=== PATIENT | male | born 1960 | race Caucasian/White ===

== ENCOUNTER 2018-01-28 12:37 | Emergency (ER) | payer MEDICARE ==
[2018-01-28 13:08] VITALS: O2SAT 97
[2018-01-28] MEDS ORDERED: Hydromorphone 1 mg/ml Ampule IM ONE (13:21)
[2018-01-28] MEDS ORDERED: Phenergan 25 MG INJ IM ONE (13:23)
[2018-01-28] MEDS ORDERED: TORAdol 30 mg Injection IM ONE (13:24)
--- NOTE | 2018-01-28 13:26 | ERPHSYRPT ---
- History of Present Illness Time Seen by Provider: 01/28/18 13:10 Source: patient Exam Limitations: clinical condition Patient Subjective Stated Complaint: STATES HAS LOWER BACK PAIN FOR ONE WEEK. STATES IS NOW RADIATING DOWN R HIP AND R LEG. DENIES ANY INJURY Triage Nursing Assessment: TO ROOM PER WC. SKIN MOIST/WARM. PATIENT HOLDING RIGHT SIDE OF BACK. Physician History: PATIENT WITH A HISTORY OF CHRONIC LOW BACK PAIN, DEGENERATIVE DISC DISEASE COMPLAINS OF INCREASING LOW BACK PAIN, SHARP, PAIN SCALE 10/10, STATES PAIN RADIATES DOWN BACK OF RIGHT LEG. DENIES LOSS OF BOWEL OR BLADDER FUNCTION. Timing/Duration: week(s) Method of Injury: unknown Quality: sharp, throbbing Back Pain Location: lumbar spine Back Pain Radiation: upper legs Severity of Pain-Max: severe Severity of Pain-Current: severe Modifying Factors: Improves With: movement Associated Symptoms: muscle spasms Previous symptoms: same symptoms as today Allergies/Adverse Reactions: hydrocodone Adverse Reaction (Mild, Verified 01/28/18 12:57) Nausea and Vomiting Hx Tetanus, Diphtheria Vaccination/Date Given: No Hx Influenza Vaccination/Date Given: No Hx Pneumococcal Vaccination/Date Given: No - Review of Systems Constitutional: No Fever, No Chills Eyes: No Symptoms Ears, Nose, & Throat: No Symptoms Respiratory: No Symptoms, No Cough, No Dyspnea Cardiac: No Symptoms, No Chest Pain, No Edema, No Syncope Abdominal/Gastrointestinal: No Symptoms, No Abdominal Pain, No Nausea, No Vomiting, No Diarrhea Genitourinary Symptoms: No Dysuria Musculoskeletal: Back Pain, No Neck Pain Skin: No Rash Neurological: Other (SCIATICA DOWN RIGHT LEG), No Dizziness, No Focal Weakness, No Sensory Changes Psychological: No Symptoms Endocrine: No Symptoms All Other Systems: Reviewed and Negative - Past Medical History Pertinent Past Medical History: Yes Neurological History: Other Musculoskeletal History: Arthritis, Degenerative Disk Disease GI Medical History: GERD - Past Surgical History Past Surgical History: Yes Gastrointestinal: Cholecystectomy Musculoskeletal: Orthopedic Surgery Other Surgical History: BACK SURGERY A CHILD - Social History Smoking Status: Never smoker How long have you smoked: 5 Exposure to second hand smoke: No Drug Use: none Patient Lives Alone: No - Nursing Vital Signs Nursing Vital Signs: Initial Vital Signs Temperature 97.6 F 01/28/18 12:48 Pulse Rate 64 01/28/18 12:48 Respiratory Rate 16 01/28/18 12:48 Blood Pressure 152/80 01/28/18 12:48 O2 Sat by Pulse Oximetry 97 01/28/18 12:48 Pain Scale Pain Intensity 8 - Physical Exam General Appearance: moderate distress, alert Eye Exam: PERRL/EOMI, eyes nml inspection Neck Exam: normal inspection, non-tender, supple, full range of motion, No meningismus, No midline tenderness Respiratory Exam: normal breath sounds, lungs clear, No respiratory distress Cardiovascular Exam: regular rate/rhythm, normal heart sounds Gastrointestinal Exam: soft, No tenderness, No mass Back Exam: normal inspection, decreased range of motion, muscle spasm, point tenderness (L-1 TO L-5, MARKED TENDERNESS RIGHT SACRO ILIAC JOINT) Extremity Exam: normal inspection, normal range of motion, No calf tenderness, No pedal edema Peripheral Pulses: carotid (R): 2+, carotid (L): 2+, femoral (R): 2+, femoral (L ): 2+, dorsalis-pedis (R): 2+, dorsalis-pedis (L): 2+ Neurologic Exam: alert, oriented x 3, cooperative, 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, normal mood/affect, nml station & gait, sensation nml, No motor deficits Skin Exam: normal color, warm, dry, No rash SpO2 Interpretation: normal SpO2: 97 Oxygen Delivery: Room Air - CT Exams Lumbar Spine CT Interpretation: Discussed w/radiologist (BILATERAL L-5 SPONDYLOLYSIS AND GRADE 1-2 SPONKLYOLISTHEISI WITH SUBSEQUENT BILATERAL FORAMINAL STENOSIS, L-5 TO S-1 BROAD BASED DISC BULGE) Ordered Tests: Active Orders 24 hr Category Date Time Status LUMBAR SPINE W/O [CT] Stat Exams 01/28/18 13:22 Completed Medication Summary Discontinued Medications Generic Name Dose Route Start Last Admin Trade Name Joseq PRN Reason Stop Dose Admin Hydromorphone HCl 1 mg 01/28/18 13:21 01/28/18 13:50 Hydromorphone 1 Mg/Ml Ampule IM 01/28/18 13:22 1 mg STAT ONE Administration Hydromorphone HCl Confirm 01/28/18 13:38 Hydromorphone 1 Mg/Ml Ampule Administered 01/28/18 13:39 Dose 1 mg .ROUTE .STK-MED ONE Ketorolac Tromethamine 60 mg 01/28/18 13:24 01/28/18 13:50 Toradol 30 Mg Injection IM 01/28/18 13:25 60 mg STAT ONE Administration Ketorolac Tromethamine Confirm 01/28/18 13:38 Toradol 30 Mg Injection Administered 01/28/18 13:39 Dose 60 mg .ROUTE .STK-MED ONE Promethazine HCl 25 mg 01/28/18 13:23 01/28/18 13:50 Phenergan 25 Mg Inj IM 01/28/18 13:24 25 mg STAT ONE Administration Promethazine HCl Confirm 01/28/18 13:38 Phenergan 25 Mg Inj Administered 01/28/18 13:39 Dose 25 mg .ROUTE .STK-MED ONE - Progress Progress: improved, pain not gone completely Progress Note: 01/28/18 13:54 ADMINISTERED DILAUDID 1MG/PHENERGAN 25MG IM, TORADOL 60MG IM Counseled pt/family regarding: diagnosis, need for follow-up, rad results - Departure Time of Disposition: 14:45 Departure Disposition: Transfer Clinical Impression: LUMBAR DEGENERATIVE DISC DISEASE Condition: Stable Critical Care Time: No Referrals: DOCTOR,NO FAMILY [Primary Care Provider] - Additional Instructions: FOLLOWUP WITH A PRIMARY CARE PROVIDER FOR EVALUATION, TREATMENT, PHYSICAL THERAPY. TORADOL 10MG EVERY 6 HOURS FOR MILD TO MODERATE PAIN, TYLENOL #3 EVERY 6 HOURS FOR SEVERE PAIN. NORFLEX 100MG TWICE DAILY FOR MUSCLE SPASMS. Prescriptions: Codeine Phosphate/APAP #3 [Tylenol #3 Tablet] 1 tab PO Q6H PRN PRN #14 tablet PRN Reason: Pain Ketorolac Tromethamine [Toradol] 10 mg PO Q6HPRN PRN #20 tablet PRN Reason: Pain Orphenadrine Citrate 100 mg [Norflex 100 MG Tablet] 100 mg PO BID #20 tab
[2018-01-28] MEDS ORDERED: Hydromorphone 1 mg/ml Ampule ONE (13:38)
[2018-01-28] MEDS ORDERED: Phenergan 25 MG INJ ONE (13:38)
[2018-01-28] MEDS ORDERED: TORAdol 30 mg Injection ONE (13:38)
--- NOTE | 2018-01-28 14:08 | XRAY ---
Indication: Low back pain radiating down right leg. Multiple contiguous axial images obtained through the lumbar spine. Sagittal and coronal reformatted images obtained. Comparison: None Axial images demonstrates mild broad-based disc bulge at the L2-S1 levels, L5-S1 degenerative vacuum disc phenomena, and bilateral L5 spondylolysis. Sagittal and coronal reformatted images demonstrates normal lumbar lordosis. There is 5 mm L5 spondylolisthesis on S1 with subsequent bilateral foraminal stenosis. No compression fracture. Visualized noncontrasted soft tissues demonstrates mild aortoiliac calcifications. Impression: 1. 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 2. L2-S1 broad-based disc bulge. CT DI 75.52
[2018-01-28 14:48] VITALS: BP 142/79; PULSE 60
== END 2018-01-28 15:04 | disposition home or self-care (01) ==
LOC: ED 12:37
DX: M51.16 Intervertebral disc disorders with radiculopathy, lumbar region (principal); M54.5 Low back pain; M62.830 Muscle spasm of back
CPT/HCPCS: 72131; 96372; 99284; J1170; J1885; J2550

== ENCOUNTER 2018-10-14 11:43 | Emergency (ER) | payer MEDICARE ==
[2018-10-14] MEDS ORDERED: TORAdol 30 mg Injection IV ONE (12:14)
[2018-10-14] MEDS ORDERED: Sodium Chloride 0.9% 1000 ML 1,000 ML IV STA (12:14)
--- NOTE | 2018-10-14 12:18 | ERPHSYRPT ---
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 pt reports the pain caused him to feel as if he could pass out. pt also reports pins and needles sensation to the legs. reports he has some herniated discs in his back. states he was seen at this facility recently for this issue and was referred to a specialist who did a procedure to his back, he cannot recall the name of the facility or what procedure. pt reports lifting his grandson into a high chair prior to the pain starting. Triage Nursing Assessment: pt is aox3, pupils perrl, afebrile, resps easy and non labored, radial pulses strong and equal, cap refill < 3 seconds, pt skin pink warm dry. no injury or deformity noted to the back, skin is intact. pt ROM intact, pt stood and transfered to cot with no difficulties. Physician History: 58-year-old white male with history of chronic low back pain, degenerative disease, arthritis, GERD. Arrives with complaint of pain which is described as sharp intermittent severe located in his left flank and low back on the left symptoms going on for an hour. Patient does give a history of lifting a child prior to pain however he is having pain whether or not he moves he has tingling of both upper extremities. Is not having any problem moving Past medical history includes chronic low back pain degenerative disease arthritis, GERD. Past surgical history includes cholecystectomy orthopedic surgery back surgery as a child. Timing/Duration: today Severity: moderate Modifying Factors: Improves With: nothing Associated Symptoms: other (patient states the pain was so bad he passed out), No nausea, No vomiting, No abdominal pain, No shortness of breath, No heartburn , No diaphoresis, No cough, No chills, No chest pain, No fever, No headaches, No loss of appetite, No malaise, No rash, No syncope, No seizure, No weakness Allergies/Adverse Reactions: hydrocodone Adverse Reaction (Mild, Verified 01/28/18 12:57) Nausea and Vomiting Hx Tetanus, Diphtheria Vaccination/Date Given: (unk) Hx Influenza Vaccination/Date Given: No Hx Pneumococcal Vaccination/Date Given: No Immunizations Up to Date: Yes - Review of Systems Constitutional: No Fever, No Chills Eyes: No Symptoms Ears, Nose, & Throat: No Symptoms Respiratory: No Cough, No Dyspnea Cardiac: Syncope, No Chest Pain, No Edema, No Palpitations, No Orthopnea, No PND Abdominal/Gastrointestinal: No Abdominal Pain, No Nausea, No Vomiting, No Diarrhea Genitourinary Symptoms: No Dysuria Musculoskeletal: No Back Pain, No Neck Pain Skin: No Rash Neurological: No Dizziness, No Focal Weakness, No Sensory Changes Psychological: No Symptoms Endocrine: No Symptoms All Other Systems: Reviewed and Negative - Past Medical History Pertinent Past Medical History: Yes Neurological History: Other Musculoskeletal History: Arthritis, Degenerative Disk Disease GI Medical History: GERD Other Medical History: chronic back pain - Past Surgical History Past Surgical History: Yes Gastrointestinal: Cholecystectomy Musculoskeletal: Orthopedic Surgery Other Surgical History: BACK SURGERY A CHILD - Social History Smoking Status: Never smoker How long have you smoked: 5 Exposure to second hand smoke: No Drug Use: none Patient Lives Alone: No - Nursing Vital Signs Nursing Vital Signs: Initial Vital Signs Temperature 97.8 F 10/14/18 11:44 Pulse Rate 63 10/14/18 11:44 Respiratory Rate 18 10/14/18 11:44 Blood Pressure 165/84 10/14/18 11:44 O2 Sat by Pulse Oximetry 98 10/14/18 11:44 Pain Scale Pain Intensity [] 2 Pain Intensity 5 - Physical Exam General Appearance: moderate distress, alert Eye Exam: PERRL/EOMI, eyes nml inspection Ears, Nose, Throat Exam: normal ENT inspection, TMs normal, pharynx normal, moist mucous membranes Neck Exam: normal inspection, non-tender, supple, full range of motion Respiratory Exam: normal breath sounds, lungs clear, No respiratory distress Cardiovascular Exam: regular rate/rhythm, normal heart sounds, normal peripheral pulses, capillary refill <2 sec Gastrointestinal/Abdomen Exam: soft, normal bowel sounds, No tenderness, No mass Back Exam: CVA tenderness (left flank pain) Extremity Exam: normal inspection, normal range of motion, pelvis stable Neurologic Exam: alert, oriented x 3, cooperative, 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 Scattered colonic diverticulosis without diverticulitis. 2. Nonobstructing bilateral renal microbe-calculi. 3. Incidental L5 spondylolysis with grade 1-[address] abdomen/ pelvis without contrast exam negative) Ordered Tests: Active Orders 24 hr Category Date Time Status EKG-ER Only STAT Care 10/14/18 12:18 Active IV Insertion STAT Care 10/14/18 12:14 Active ABDOMEN AND PELVIS W/0 CONTRAS [CT] Stat Exams 10/14/18 12:14 Completed CBC W DIFF Stat Lab 10/14/18 12:32 Completed CMP Stat Lab 10/14/18 12:32 Completed UA W/RFX UR CULTURE Stat Lab 10/14/18 13:40 Completed Urine Triage Profile Stat Lab 10/14/18 13:30 Completed Medication Summary Discontinued Medications Generic Name Dose Route Start Last Admin Trade Name Freq PRN Reason Stop Dose Admin Sodium Chloride 1,000 mls @ 999 mls/hr 10/14/18 12:14 10/14/18 14:27 Sodium Chloride 0.9% 1000 Ml IV 10/14/18 13:14 Infused .Q1H1M STA Infusion Sodium Chloride Confirm 10/14/18 13:04 Sodium Chloride 0.9% 1000 Ml Administered 10/14/18 13:05 Dose 1,000 mls @ ud .ROUTE .STK-MED ONE Ketorolac Tromethamine 30 mg 10/14/18 12:14 10/14/18 13:08 Toradol 30 Mg Injection IV 10/14/18 12:15 30 mg STAT ONE Administration Ketorolac Tromethamine Confirm 10/14/18 13:04 Toradol 30 Mg Injection Administered 10/14/18 13:05 Dose 30 mg .ROUTE .STK-MED ONE Lab/Rad Data: Laboratory Result Diagrams 10/14/18 12:32 10/14/18 12:32 Laboratory Results 10/14/18 10/14/18 10/14/18 Range/Units 13:40 13:30 12:32 WBC (4.0-10.5) K/mm3 RBC (4.1-5.6) M/mm3 Hgb (12.5-18.0) gm/dl Hct (42-50) % MCV (78-100) fl MCH (26-32) pg MCHC (32-36) g/dl RDW (11.5-14.0) % Plt Count (150-450) K/mm3 MPV (6-9.5) fl Gran % (36.0-66.0) % Eos # (Auto) (0-0.5) Absolute Lymphs (auto) (1.0-4.6) Absolute Monos (auto) (0.0-1.3) Lymphocytes % (24.0-44.0) % Monocytes % (0.0-12.0) % Eosinophils % (0.00-5.0) % Basophils % (0.0-0.4) % Absolute Granulocytes (1.4-6.9) Basophils # (0-0.4) Sodium 139 (137-145) mmol/L Potassium 4.1 (3.5-5.1) mmol/L Chloride 104 (98-107) mmol/L Carbon Dioxide 25 (22-30) mmol/L Anion Gap 14.5 (5-15) MEQ/L BUN 14 (9-20) mg/dL Creatinine 0.91 (0.66-1.25) mg/dL Estimated GFR > 60.0 ML/MIN Glucose 103 (74-106) mg/dL Calcium 9.8 (8.4-10.2) mg/dL Total Bilirubin 0.40 (0.2-1.3) mg/dL AST 24 (17-59) U/L ALT 18 (0-50) U/L Alkaline Phosphatase 77 (38-126) U/L Serum Total Protein 7.3 (6.3-8.2) g/dL Albumin 4.0 (3.5-5.0) g/dL Urine Color YELLOW (YELLOW) Urine Appearance CLEAR (CLEAR) Urine pH 6.0 (5-6) Ur Specific [place] 1.012 (1.005-1.025) Urine Protein NEGATIVE (Negative) Urine Ketones NEGATIVE (NEGATIVE) Urine Blood NEGATIVE (0-5) Dante/ul Urine Nitrite NEGATIVE (NEGATIVE) Urine Bilirubin NEGATIVE (NEGATIVE) Urine Urobilinogen NEGATIVE (0-1) mg/dL Ur Leukocyte Esterase NEGATIVE (NEGATIVE) Urine WBC (Auto) NONE (0-5) /HPF Urine RBC (Auto) NONE (0-2) /HPF U Epithel Cells (Auto) NONE (FEW) /HPF Urine Bacteria (Auto) NONE (NEGATIVE) /HPF Urine Mucus (Auto) SLIGHT (NEGATIVE) /HPF Urine Culture Reflexed NO (NO) Urine Glucose NEGATIVE (NEGATIVE) mg/dL Urine Opiates Level NEGATIVE (NEGATIVE) Ur Methadone NEGATIVE (NEGATIVE) Urine Barbiturates NEGATIVE (NEGATIVE) Ur Phencyclidine (PCP) NEGATIVE (NEGATIVE) Urine Amphetamine NEGATIVE (NEGATIVE) U Benzodiazepine Level NEGATIVE (NEGATIVE) Urine Cocaine NEGATIVE (NEGATIVE) Urine Marijuana (THC) NEGATIVE (NEGATIVE) 10/14/18 Range/Units 12:32 WBC 9.3 (4.0-10.5) K/mm3 RBC 5.11 (4.1-5.6) M/mm3 Hgb 15.4 (12.5-18.0) gm/dl Hct 45.3 (42-50) % MCV 88.6 (78-100) fl MCH 30.1 (26-32) pg MCHC 34.0 (32-36) g/dl RDW 14.1 H (11.5-14.0) % Plt Count 236 (150-450) K/mm3 MPV 10.4 H (6-9.5) fl Gran % 64.3 (36.0-66.0) % Eos # (Auto) 0.21 (0-0.5) Absolute Lymphs (auto) 2.15 (1.0-4.6) Absolute Monos (auto) 0.93 (0.0-1.3) Lymphocytes % 23.1 L (24.0-44.0) % Monocytes % 10.0 (0.0-12.0) % Eosinophils % 2.3 (0.00-5.0) % Basophils % 0.3 (0.0-0.4) % Absolute Granulocytes 5.97 (1.4-6.9) Basophils # 0.03 (0-0.4) Sodium (137-145) mmol/L Potassium (3.5-5.1) mmol/L Chloride (98-107) mmol/L Carbon Dioxide (22-30) mmol/L Anion Gap (5-15) MEQ/L BUN (9-20) mg/dL Creatinine (0.66-1.25) mg/dL Estimated GFR ML/MIN Glucose (74-106) mg/dL Calcium (8.4-10.2) mg/dL Total Bilirubin (0.2-1.3) mg/dL AST (17-59) U/L ALT (0-50) U/L Alkaline Phosphatase (38-126) U/L Serum Total Protein (6.3-8.2) g/dL Albumin (3.5-5.0) g/dL Urine Color (YELLOW) Urine Appearance (CLEAR) Urine pH (5-6) Ur Specific [place] (1.005-1.025) Urine Protein (Negative) Urine Ketones (NEGATIVE) Urine Blood (0-5) Dante/ul Urine Nitrite (NEGATIVE) Urine Bilirubin (NEGATIVE) Urine Urobilinogen (0-1) mg/dL Ur Leukocyte Esterase (NEGATIVE) Urine WBC (Auto) (0-5) /HPF Urine RBC (Auto) (0-2) /HPF U Epithel Cells (Auto) (FEW) /HPF Urine Bacteria (Auto) (NEGATIVE) /HPF Urine Mucus (Auto) (NEGATIVE) /HPF Urine Culture Reflexed (NO) Urine Glucose (NEGATIVE) mg/dL Urine Opiates Level (NEGATIVE) Ur Methadone (NEGATIVE) Urine Barbiturates (NEGATIVE) Ur Phencyclidine (PCP) (NEGATIVE) Urine Amphetamine (NEGATIVE) U Benzodiazepine Level (NEGATIVE) Urine Cocaine (NEGATIVE) Urine Marijuana (THC) (NEGATIVE) - Progress Progress: unchanged Progress Note: 10/14/18 15:20 Patient improved after Toradol [address] of the patient's abdomen and pelvis impression 1 scattered colonic diverticulosis without diverticulitis to nonobstructing bilateral renal Microcal feel I 3 incidental L5 spondylolysis with a grade on the tubes spondylolisthesis 3. Remaining CT abdomen and pelvis without contrast was negative patient's urine drug screen was negative patient EKG sinus bradycardia 57 beats per minute normal axis no acute ST or T wave changes noted patient's urinalysis was normal chemistry was normal CBC essentially normal. Will discharge patient with Tylenol 3 and Flexeril. - Departure Departure Disposition: Home Clinical Impression: Left flank pain Back pain Qualifiers: Back pain location: low back pain Chronicity: acute Back pain laterality: left Sciatica presence: without sciatica Qualified Code(s): M54.5 - Low back pain Condition: Fair Critical Care Time: No Referrals: DOCTOR,NO FAMILY [Primary Care Provider] - Additional Instructions: Return home. Plenty of fluids. Tylenol #3 one orally every 4-6 hours as needed for pain #12. Cyclobenzaprine 10 mg orally 3 times a day for 5 days as needed for pain. Followup with your family (list) Return for acute distress or for severe symptoms. Prescriptions: Codeine Phosphate/APAP #3 [Tylenol #3 Tablet] 1 tab PO Q4-6HPRN PRN #12 tablet PRN Reason: left flank and back pain Cyclobenzaprine HCl 10 mg [Cyclobenzaprine 10 MG] 10 mg PO TIDPRN #15 tablet
[2018-10-14 12:34] LABS: BASOPHIL % 0.3 % (0.0-0.4); Basophil (Absolute #) 0.03 (0-0.4); Eosinophil % 2.3 % (0.00-5.0); Eosinophil (Absolute #) 0.21 (0-0.5); Granulocyte Absolute (ANC) 5.97 (1.4-6.9); Granulocytes % 64.3 % (36.0-66.0); Hematocrit 45.3 % (42-50); Hemoglobin 15.4 gm/dl (12.5-18.0); Lymphocyte (Absolute #) 2.15 (1.0-4.6); Lymphocytes % 23.1 % (24.0-44.0); Mean Cell Volume 88.6 fl (78-100); Mean Corpuscular Hemoglobin 30.1 pg (26-32); Mean Platelet Volume 10.4 fl (6-9.5); Monocyte (Absolute #) 0.93 (0.0-1.3); Platelet Count 236 K/mm3 (150-450); Red Blood Count 5.11 M/mm3 (4.1-5.6); Red Cell Distribution Width 14.1 % (11.5-14.0); White Blood Count 9.3 K/mm3 (4.0-10.5)
[2018-10-14 12:53] LABS: ALKALINE PHOSPHATASE 77 U/L (38-126); ANION GAP 14.5 MEQ/L (5-15); BLOOD UREA NITROGEN 14 mg/dL (9-20); CHLORIDE 104 mmol/L (98-107); Calcium 9.8 mg/dL (8.4-10.2); Carbon Dioxide 25 mmol/L (22-30); Creatinine 1 0.91 mg/dL (0.66-1.25); Glucose 103 mg/dL (74-106); Potassium 4.1 mmol/L (3.5-5.1); SGOT/AST 24 U/L (17-59); SGPT/ALT 18 U/L (0-50); SODIUM 139 mmol/L (137-145); Total Protein 7.3 g/dL (6.3-8.2)
[2018-10-14] MEDS ORDERED: TORAdol 30 mg Injection ONE (13:04)
[2018-10-14] MEDS ORDERED: Sodium Chloride 0.9% 1000 ML 1,000 ML ONE (13:04)
--- NOTE | 2018-10-14 13:20 | XRAY ---
Indication: Left flank pain. History kidney stone. Multiple contiguous axial images obtained through the abdomen and pelvis without contrast as ordered. Comparison: None Lung bases demonstrates minimal lingula and medial right middle lobe fibrosis/scarring. No infiltrate or effusion. Heart is not enlarged. Noncontrasted stomach and bowel loops appear nonobstructed. Normal appendix. Mild scattered colonic diverticulosis throughout without diverticulitis. No free fluid/air. Previous cholecystectomy. Left kidney demonstrates 2 nonobstructing micro-calculus, largest 3-4 mm. Right kidney demonstrates nonobstructing punctate calculus. Remaining liver, pancreas, spleen, adrenal glands, kidneys, ureters, and bladder appear unremarkable for noncontrast exam. Minimal aortic calcifications without AAA. Osseous structures intact with mild degenerative changes throughout the lumbar spine and bilateral L5 spondylolysis with 7-8 mm spondylolisthesis. Impression: 1. Scattered colonic diverticulosis without diverticulitis. 2. Nonobstructing bilateral renal micro-calculi. 3. Incidental L5 spondylolysis with grade 1-[address] abdomen/pelvis without contrast exam is negative. CT DI 23.68
[2018-10-14 13:48] LABS: Appearance CLEAR (CLEAR); Bilirubin NEGATIVE (NEGATIVE); Blood NEGATIVE Ery/ul (0-5); Glucose NEGATIVE (NEGATIVE); Ketones NEGATIVE (NEGATIVE); Leukocyte Esterase NEGATIVE (NEGATIVE); Mucus SLIGHT /HPF (NEGATIVE); Nitrite NEGATIVE (NEGATIVE); Protein,Urine Dip NEGATIVE (Negative); Specific Gravity 1.012 (1.005-1.025); Urobilinogen NEGATIVE mg/dL (0-1)
[2018-10-14 14:02] LABS: Amphetamine,Urine NEGATIVE (NEGATIVE); Barbiturate,Urine NEGATIVE (NEGATIVE); Benzodiazepine,Urine NEGATIVE (NEGATIVE); Cocaine,Urine NEGATIVE (NEGATIVE); Methadone,Urine NEGATIVE (NEGATIVE); Opiate,Urine NEGATIVE (NEGATIVE); PCP,Urine NEGATIVE (NEGATIVE); THC,Urine NEGATIVE (NEGATIVE)
[2018-10-14 14:54] VITALS: PULSE 63
[2018-10-14 15:37] VITALS: BP 138/81; O2SAT 95
== END 2018-10-14 15:35 | disposition home or self-care (01) ==
LOC: ED 11:43
DX: R10.9 Unspecified abdominal pain (principal); M54.5 Low back pain
CPT/HCPCS: 36000; 36415; 74176; 80053; 80307; 81001; 85025; 93005; 96360; 96374; 99284; J1885

== ENCOUNTER 2018-12-28 09:44 | Emergency (ER) | payer MEDICARE ==
[2018-12-28 09:58] VITALS: BP 125/76; PULSE 70; O2SAT 97
--- NOTE | 2018-12-28 10:02 | ERPHSYRPT ---
- History of Present Illness Time Seen by Provider: 12/28/18 10:02 Source: patient Exam Limitations: no limitations Patient Subjective Stated Complaint: patietn states hes been congested but now its getting to where hes got pain from coughing so much , sometimes feels hsort of breath. Triage Nursing Assessment: pt is alert and orientedx3, able to ambulate by self , gait is steady, skin wamr dry and intact, nasal and oral drainage, intermittant cough. Lung sounds clear, bilateral. Physician History: Started Fridaqy - dry cough; progresed to paroxysmal cough with clear whitish phlegm. Coughing so much R side ribs are huring with cough. Timing/Duration: day(s) (2) Activities at Onset: none Severity of Dyspnea-Max: mild Severity of Dyspnea-Current: none Possible Cause: no prior episodes Modifying Factors: Improves With: nothing Associated Symptoms: denies symptoms International travel in last 2 weeks: No Allergies/Adverse Reactions: hydrocodone Adverse Reaction (Mild, Verified 01/28/18 12:57) Nausea and Vomiting Hx Tetanus, Diphtheria Vaccination/Date Given: Yes Hx Influenza Vaccination/Date Given: No Hx Pneumococcal Vaccination/Date Given: No Immunizations Up to Date: Yes - Review of Systems Constitutional: No Symptoms Respiratory: Cough (Paroxysmal last 24 hours) Cardiac: Chest Pain (Right lower ribs with coughing) Musculoskeletal: No Symptoms All Other Systems: Reviewed and Negative - Past Medical History Pertinent Past Medical History: Yes Neurological History: Other Cardiac History: No Pertinent History Respiratory History: No Pertinent History Musculoskeletal History: Arthritis, Degenerative Disk Disease GI Medical History: GERD Other Medical History: chronic back pain - Past Surgical History Past Surgical History: Yes Gastrointestinal: Cholecystectomy Musculoskeletal: Orthopedic Surgery Other Surgical History: BACK SURGERY A CHILD - Social History Smoking Status: Former smoker How long have you smoked: 5 Exposure to second hand smoke: No Drug Use: none Patient Lives Alone: No - Nursing Vital Signs Nursing Vital Signs: Initial Vital Signs Temperature 97.7 F 12/28/18 09:44 Pulse Rate 70 12/28/18 09:44 Respiratory Rate 16 12/28/18 09:44 Blood Pressure 125/76 12/28/18 09:44 O2 Sat by Pulse Oximetry 94 L 12/28/18 09:44 Pain Scale Pain Intensity 5 - Physical Exam General Appearance: no apparent distress Eye Exam: PERRL/EOMI Ears, Nose, Throat Exam: hearing grossly normal, normal pharynx Neck Exam: normal inspection Respiratory Exam: normal breath sounds, lungs clear, airway intact, No chest tenderness, No respiratory distress Cardiovascular/Chest Exam: normal heart sounds Abdominal/Gastrointestinal Exam: soft, normal bowel sounds, No tenderness Extremity Exam: non-tender, normal range of motion, normal inspection Neurologic Exam: alert, oriented x 3, cooperative Skin Exam: normal color, warm, dry SpO2 Interpretation: normal SpO2: 97 O2 Delivery: Room Air - Course Nursing assessment & vital signs reviewed: Yes - Radiology Exams Chest X-ray Interpretation: Interpreted by me, Negative Ordered Tests: Active Orders 24 hr Category Date Time Status CHEST 2 VIEWS (PA AND LAT) Stat Exams 12/28/18 10:19 Taken - Progress Progress Note: 12/28/18 10:15 Radiology overview of my reading likewise sees no apparent concerns - no acute findings. - Departure Departure Disposition: Home Clinical Impression: URI (upper respiratory infection) Clinical Impression: (Ruled Out): Gastrojejunostomy tube dislodgement Condition: Good Critical Care Time: No Referrals: DOCTOR,NO FAMILY [Primary Care Provider] - Additional Instructions: Take prednisone daily as prescribed; use cough syrup as prescibed. Best to take a teaspoonfull about 20 minutes prior to bedtime.Tylenol for discomfort or fever. Prescriptions: Promethazine W Codeine Syr [Phenergan with Codeine Syrup] 5 ml PO Q6H PRN PRN #100 ml PRN Reason: Cough Prednisone 20 mg [Deltasone 20 mg] 40 mg PO DAILY #10 tablet
--- NOTE | 2018-12-28 20:33 | XRAY ---
Indication: Cough and headache. Comparison: None PA/lateral chest demonstrates minimal left base linear atelectasis/scarring. Remaining heart and lungs unremarkable. Bony thorax intact.
== END 2018-12-28 10:59 | disposition home or self-care (01) ==
LOC: ED 09:44
DX: J06.9 Acute upper respiratory infection, unspecified (principal)
CPT/HCPCS: 71046; 99283

== ENCOUNTER 2019-04-15 12:32 | Day surgery (SDC) | payer MEDICARE ==
[2019-04-15] MEDS ORDERED: Depo-Medrol 40 MG/ML IM ONE (12:33)
[2019-04-15] MEDS ORDERED: Marcaine 0.5% SDV 10 ML IJ ONE (12:33)
[2019-04-15] MEDS ORDERED: Ketamine HCl 50 MG/ML ONE (13:58)
[2019-04-15] MEDS ORDERED: DIPRIVAN 200 MG/20 ML IV ONE (13:58)
--- NOTE | 2019-04-15 16:53 | XRAY ---
Indication: Right SI joint injection. Intraoperative fluoroscopy was provided for 10 seconds. 2 digital spot images submitted for interpretation demonstrates posterior needle tip projecting over the inferior right SI joint. Correlate with intraoperative findings/report.
--- NOTE | 2019-04-15 17:04 | XRAY ---
10 seconds fluoroscopy time in surgery for right SI joint injection.
[2019-04-15] MEDS ORDERED: Lactated Ringers 1,000 ML IV ONE (17:05)
== END 2019-04-15 14:27 | disposition home or self-care (01) ==
LOC: SDC-PAIN 12:32
PROVIDERS: ATTEND Psychiatry & Neurology Pain Medicine
DX: M46.1 Sacroiliitis, not elsewhere classified (principal); K21.9 Gastro-esophageal reflux disease without esophagitis; F41.8 Other specified anxiety disorders; Z79.899 Other long term (current) drug therapy
CPT/HCPCS: 72020; 77002; G0260; 27096; J1030; J2704

== ENCOUNTER 2019-05-27 11:18 | Day surgery (SDC) | payer MEDICARE ==
[2019-05-27] MEDS ORDERED: Marcaine 0.5% SDV 10 ML IJ ONE (11:19)
[2019-05-27] MEDS ORDERED: Xylocaine 1% Vial 30 ML PF IJ ONE (11:19)
[2019-05-27] MEDS ORDERED: Depo-Medrol 40 MG/ML IM ONE (11:19)
--- NOTE | 2019-05-27 14:11 | XRAY ---
11 seconds fluoroscopy time in surgery for left knee injection.
--- NOTE | 2019-05-27 14:13 | XRAY ---
Indication: Left knee injection. Intraoperative fluoroscopy was provided for 11 seconds. Single digital spot image submitted for interpretation demonstrates needle tip projecting over the left femur intercondylar notch. Small amount of contrast injected for needle tip placement. Correlate with intraoperative findings/report.
--- NOTE | 2019-05-27 14:13 | XRAY ---
Indication: Right knee injection. Intraoperative fluoroscopy was provided for 6 seconds. Single digital spot image submitted for interpretation demonstrates needle tip projecting over the right femur intercondylar notch. Small amount of contrast injected for needle tip placement. Correlate with intraoperative findings/report.
--- NOTE | 2019-05-27 14:21 | XRAY ---
6 seconds fluoroscopy time in surgery for right knee injection.
== END 2019-05-27 13:15 | disposition home or self-care (01) ==
LOC: SDC-PAIN 11:18
PROVIDERS: ATTEND Psychiatry & Neurology Pain Medicine
DX: M17.0 Bilateral primary osteoarthritis of knee (principal); K21.9 Gastro-esophageal reflux disease without esophagitis; F41.8 Other specified anxiety disorders; Z79.899 Other long term (current) drug therapy
CPT/HCPCS: 20610; 73560; 77002; J1030; J2001; Q9966

== ENCOUNTER 2020-10-13 05:37 | Emergency (ER) | payer MEDICARE ==
[2020-10-13] MEDS ORDERED: Hydromorphone 1 mg/ml Injection IV ONE ×2 (06:21→07:03)
[2020-10-13] MEDS ORDERED: Hydromorphone 1 mg/ml Injection ONE ×2 (06:26→07:21)
[2020-10-13] MEDS ORDERED: Sodium Chloride 0.9% 1000 ML 1,000 ML IV SCH (06:30)
[2020-10-13] MEDS ORDERED: Sodium Chloride 0.9% 1000 ML 1,000 ML ONE (06:32)
[2020-10-13 06:43] LABS: Absolute Neutrophil Ct (ANC) 6.72 (1.4-6.9); BASOPHIL % 0.2 % (0.0-0.4); Basophil (Absolute #) 0.02 (0-0.4); Eosinophil % 1.5 % (0.00-5.0); Eosinophil (Absolute #) 0.15 (0-0.5); Hematocrit 47.2 % (42-50); Hemoglobin 15.3 gm/dl (12.5-18.0); Lymphocyte (Absolute #) 2.05 (1.0-4.6); Lymphocytes % 20.7 % (24.0-44.0); Mean Cell Volume 90.8 fl (78-100); Mean Corpuscular Hemoglobin 29.4 pg (26-32); Mean Corpuscular Hgb Concent. 32.4 g/dl (32-36); Mean Platelet Volume 10.3 fl (7.5-11.0); Monocyte (Absolute #) 0.94 (0.0-1.3); Monocytes % 9.5 % (0.0-12.0); Neutrophil % 68.1 % (36.0-66.0); Platelet Count 217 K/mm3 (150-450); Red Cell Distribution Width 14.4 % (11.5-14.0); White Blood Count 9.9 K/mm3 (4.0-10.5)
--- NOTE | 2020-10-13 06:43 | ERPHSYRPT ---
- History of Present Illness Historian: patient, EMS Exam Limitations: no limitations Patient Subjective Stated Complaint: pt states, "I woke up around 0400 with abd pain". Triage Nursing Assessment: pt c/o lt lower quad abd pain that started at 0400, c/o nausea and vomited x1 at home, very small amount. Pt states "I had a bm yesterday afternoon". Abd lg, round, obese, firm with hypoactive bs x4 quad, tender on palpation to LLQ. Activities at Onset: sleep Quality: aching Abdominal Pain Onset Location: LLQ (Left lower quadrant sharp pain), generalized abdomen (Cramping) Severity of Pain-Max: moderate Severity of Pain-Current: moderate Modifying Factors: Improves With: vomiting Associated Symptoms: loss of appetite, nausea, vomiting Previous symptoms: no prior history Hx Tetanus, Diphtheria Vaccination/Date Given: Yes Hx Influenza Vaccination/Date Given: No Hx Pneumococcal Vaccination/Date Given: No Immunizations Up to Date: Yes <YANY LEAL - Last Filed: 10/13/20 06:49> <KIMBERLY ROMERO - Last Filed: 10/13/20 08:36> - History of Present Illness Time Seen by Provider: 10/13/20 06:15 Physician History: This is a 60-year-old obese white male who presents with sudden onset of abdominal pain that was severe and sharp in the left lower quadrant but also there is generalized cramping. Patient has a history of diarrhea reticulosis. He has not had diarrhea there is associated nausea and vomiting x1 after the pain began approximately 4 AM. Patient has had a cholecystectomy in the past. Patient does have chronic back pain, DJD, arthritis and gastroesophageal reflux disease. He does see a pain specialist on occasion. (YANY LEAL) Allergies/Adverse Reactions: hydrocodone Adverse Reaction (Mild, Verified 10/13/20 05:51) Nausea and Vomiting Travel Risk - International Travel Have you traveled outside of the country in past 3 weeks: No - Coronavirus Screening Are you exhibiting any of the following symptoms?: No Close contact with a COVID-19 positive Pt in past 14-21 Days: No - Vaccine Status Have you recieved a Covid-19 vaccination: No <YANY LEAL - Last Filed: 10/13/20 06:49> - Review of Systems Constitutional: No Symptoms Eyes: No Symptoms Ears, Nose, & Throat: No Symptoms Respiratory: No Symptoms Abdominal/Gastrointestinal: Abdominal Pain, Nausea, Vomiting Genitourinary Symptoms: No Symptoms Musculoskeletal: No Symptoms Skin: No Symptoms Neurological: No Symptoms Psychological: No Symptoms Endocrine: No Symptoms Hematologic/Lymphatic: No Symptoms Immunological/Allergic: No Symptoms All Other Systems: Reviewed and Negative <YANY LEAL - Last Filed: 10/13/20 06:49> - Past Medical History Pertinent Past Medical History: Yes Neurological History: Other ENT History: No Pertinent History Cardiac History: Hypertension Respiratory History: No Pertinent History Endocrine Medical History: No Pertinent History Musculoskeletal History: Arthritis, Degenerative Disk Disease GI Medical History: GERD, Gallbladder Disease History: No Pertinent History Male Reproductive Disorders: No Pertinent History Other Medical History: chronic back pain - Past Surgical History Past Surgical History: Yes Gastrointestinal: Cholecystectomy Musculoskeletal: Orthopedic Surgery Other Surgical History: BACK SURGERY A CHILD - Social History Smoking Status: Former smoker How long have you smoked: 5 Exposure to second hand smoke: No Drug Use: none Patient Lives Alone: Yes <YANY LEAL - Last Filed: 10/13/20 06:49> - Physical Exam General Appearance: mild distress (To moderate distress), alert, anxiety Eye Exam: PERRL/EOMI, eyes nml inspection Ears, Nose, Throat Exam: normal ENT inspection, moist mucous membranes Neck Exam: normal inspection, non-tender, supple, full range of motion Respiratory Exam: normal breath sounds, lungs clear, airway intact, No chest tenderness, No respiratory distress Cardiovascular Exam: regular rate/rhythm, normal heart sounds, normal peripheral pulses Gastrointestinal/Abdomen Exam: soft, normal bowel sounds, tenderness, guarding, rebound (Left lower quadrant) Rectal Exam: not done Back Exam: normal inspection, normal range of motion, No CVA tenderness, No vertebral tenderness Extremity Exam: normal inspection, normal range of motion, pelvis stable Neurologic Exam: alert, oriented x 3, cooperative, 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, normal mood/affect, nml cerebellar function, nml station & gait, sensation nml Skin Exam: normal color, warm, dry Lymphatic Exam: No adenopathy SpO2 Interpretation: borderline oxygenation SpO2: 94 O2 Delivery: Room Air <YANY LEAL - Last Filed: 10/13/20 06:49> - Nursing Vital Signs Nursing Vital Signs: Initial Vital Signs Temperature 97.2 F 10/13/20 05:42 Pulse Rate 74 10/13/20 05:42 Respiratory Rate 18 10/13/20 05:42 Blood Pressure 150/85 10/13/20 05:42 O2 Sat by Pulse Oximetry 94 L 10/13/20 05:42 Pain Scale Pain Intensity 8 - Course Nursing assessment & vital signs reviewed: Yes <YANY LEAL - Last Filed: 10/13/20 06:49> - CT Exams Abdomen/Pelvis CT Interpretation: Tele-radiologist Report (New 5 mm calculus at the left UVJ with mild hydronephrosis and minimal hydroureter. Again additional bilateral micro calculus. Diverticulosis. L5 spondylolysis with grade 1 2 spondylolisthesis.) <KIMBERLY ROMERO - Last Filed: 10/13/20 08:36> Ordered Tests: Active Orders 24 hr Category Date Time Status ABDOMEN AND PELVIS W/0 CONTRAS [CT] Stat Exams 10/13/20 06:22 Taken AMYLASE Stat Lab 10/13/20 06:40 Completed CBC W DIFF Stat Lab 10/13/20 06:40 Completed CMP Stat Lab 10/13/20 06:40 Completed LIPASE Stat Lab 10/13/20 06:40 Completed Lactic Acid Stat Lab 10/13/20 06:25 Ordered PT INR [PROTIME WITH INR] Stat Lab 10/13/20 06:40 Completed UA W/RFX UR CULTURE Stat Lab 10/13/20 07:24 Completed Medication Summary Generic Name Dose Route Start Last Admin Trade Name Freq PRN Reason Stop Dose Admin Sodium Chloride 1,000 mls @ 100 mls/hr 10/13/20 06:30 10/13/20 06:35 Sodium Chloride 0.9% 1000 Ml IV 11/12/20 06:29 100 mls/hr .Q10H TEAGAN Administration Tamsulosin HCl 0.4 mg 10/13/20 08:30 Flomax 0.4 Mg PO 10/13/20 08:31 ONCE STA Discontinued Medications Generic Name Dose Route Start Last Admin Trade Name Freq PRN Reason Stop Dose Admin Hydromorphone HCl 1 mg 10/13/20 06:21 10/13/20 06:35 Hydromorphone 1 Mg/Ml Injection IV 10/13/20 06:22 1 mg STAT ONE Administration Hydromorphone HCl Confirm 10/13/20 06:26 Hydromorphone 1 Mg/Ml Injection Administered 10/13/20 06:27 Dose 1 mg .ROUTE .STK-MED ONE Hydromorphone HCl 1 mg 10/13/20 07:03 10/13/20 07:21 Hydromorphone 1 Mg/Ml Injection IV 10/13/20 07:04 1 mg STAT ONE Administration Hydromorphone HCl Confirm 10/13/20 07:21 Hydromorphone 1 Mg/Ml Injection Administered 10/13/20 07:22 Dose 1 mg .ROUTE .STK-MED ONE Lab/Rad Data: Laboratory Result Diagrams 10/13/20 06:40 10/13/20 06:40 Laboratory Results 10/13/20 10/13/20 10/13/20 Range/Units 07:24 06:40 06:40 WBC (4.0-10.5) K/mm3 RBC (4.1-5.6) M/mm3 Hgb (12.5-18.0) gm/dl Hct (42-50) % MCV (78-100) fl MCH (26-32) pg MCHC (32-36) g/dl RDW (11.5-14.0) % Plt Count (150-450) K/mm3 MPV (7.5-11.0) fl Gran % (36.0-66.0) % Eos # (Auto) (0-0.5) Absolute Lymphs (auto) (1.0-4.6) Absolute Monos (auto) (0.0-1.3) Lymphocytes % (24.0-44.0) % Monocytes % (0.0-12.0) % Eosinophils % (0.00-5.0) % Basophils % (0.0-0.4) % Absolute Granulocytes (1.4-6.9) Basophils # (0-0.4) PT 12.3 (8.83-12.87) SECONDS INR 1.09 (0.8-3.0) Sodium 138 (137-145) mmol/L Potassium 4.0 (3.5-5.1) mmol/L Chloride 103 (98-107) mmol/L Carbon Dioxide 24 (22-30) mmol/L Anion Gap 14.3 (5-15) MEQ/L BUN 13 (9-20) mg/dL Creatinine 1.05 (0.66-1.25) mg/dL Estimated GFR > 60.0 ML/MIN Glucose 163 H (74-106) mg/dL Calcium 8.9 (8.4-10.2) mg/dL Total Bilirubin 0.40 (0.2-1.3) mg/dL AST 48 (17-59) U/L ALT 37 (0-50) U/L Alkaline Phosphatase 75 (38-126) U/L Serum Total Protein 6.8 (6.3-8.2) g/dL Albumin 4.1 (3.5-5.0) g/dL Amylase 72 (30-110) U/L Lipase 81 (23-300) U/L Urine Color YELLOW (YELLOW) Urine Appearance CLOUDY (CLEAR) Urine pH 5.0 (5-6) Ur Specific [place] 1.025 (1.005-1.025) Urine Protein NEGATIVE (Negative) Urine Ketones NEGATIVE (NEGATIVE) Urine Blood LARGE (0-5) Dante/ul Urine Nitrite NEGATIVE (NEGATIVE) Urine Bilirubin NEGATIVE (NEGATIVE) Urine Urobilinogen NEGATIVE (0-1) mg/dL Ur Leukocyte Esterase NEGATIVE (NEGATIVE) Urine WBC (Auto) 3-5 (0-5) /HPF Urine RBC (Auto) >101 (0-2) /HPF U Epithel Cells (Auto) NONE (FEW) /HPF Urine Bacteria (Auto) RARE (NEGATIVE) /HPF Urine Mucus (Auto) SLIGHT (NEGATIVE) /HPF Urine Culture Reflexed NO (NO) Urine Glucose NEGATIVE (NEGATIVE) mg/dL 10/13/20 Range/Units 06:40 WBC 9.9 (4.0-10.5) K/mm3 RBC 5.20 (4.1-5.6) M/mm3 Hgb 15.3 (12.5-18.0) gm/dl Hct 47.2 (42-50) % MCV 90.8 (78-100) fl MCH 29.4 (26-32) pg MCHC 32.4 (32-36) g/dl RDW 14.4 H (11.5-14.0) % Plt Count 217 (150-450) K/mm3 MPV 10.3 (7.5-11.0) fl Gran % 68.1 H (36.0-66.0) % Eos # (Auto) 0.15 (0-0.5) Absolute Lymphs (auto) 2.05 (1.0-4.6) Absolute Monos (auto) 0.94 (0.0-1.3) Lymphocytes % 20.7 L (24.0-44.0) % Monocytes % 9.5 (0.0-12.0) % Eosinophils % 1.5 (0.00-5.0) % Basophils % 0.2 (0.0-0.4) % Absolute Granulocytes 6.72 (1.4-6.9) Basophils # 0.02 (0-0.4) PT (8.83-12.87) SECONDS INR (0.8-3.0) Sodium (137-145) mmol/L Potassium (3.5-5.1) mmol/L Chloride (98-107) mmol/L Carbon Dioxide (22-30) mmol/L Anion Gap (5-15) MEQ/L BUN (9-20) mg/dL Creatinine (0.66-1.25) mg/dL Estimated GFR ML/MIN Glucose (74-106) mg/dL Calcium (8.4-10.2) mg/dL Total Bilirubin (0.2-1.3) mg/dL AST (17-59) U/L ALT (0-50) U/L Alkaline Phosphatase (38-126) U/L Serum Total Protein (6.3-8.2) g/dL Albumin (3.5-5.0) g/dL Amylase (30-110) U/L Lipase (23-300) U/L Urine Color (YELLOW) Urine Appearance (CLEAR) Urine pH (5-6) Ur Specific [place] (1.005-1.025) Urine Protein (Negative) Urine Ketones (NEGATIVE) Urine Blood (0-5) Dante/ul Urine Nitrite (NEGATIVE) Urine Bilirubin (NEGATIVE) Urine Urobilinogen (0-1) mg/dL Ur Leukocyte Esterase (NEGATIVE) Urine WBC (Auto) (0-5) /HPF Urine RBC (Auto) (0-2) /HPF U Epithel Cells (Auto) (FEW) /HPF Urine Bacteria (Auto) (NEGATIVE) /HPF Urine Mucus (Auto) (NEGATIVE) /HPF Urine Culture Reflexed (NO) Urine Glucose (NEGATIVE) mg/dL - Progress Progress: improved, pain not gone completely Counseled pt/family regarding: lab results, diagnosis, rad results <YANY LEAL - Last Filed: 10/13/20 06:49> <KIMBERLY ROMERO - Last Filed: 10/13/20 08:36> - Progress Progress Note: 10/13/20 06:54 Patient care is transferred to Dr. Romero here in the emergency department at shift change. He was made aware of the test that he is to follow-up on. He will make the final disposition of this patient. (YANY LEAL) Patient endorsed to Dr. Romero at approximately 7 AM. Patient initially evaluated and treated by Dr. Leal. Labs reviewed. Labs are essentially unremarkable. Urinalysis pending. CT scan reveals a 5 mm calculus at the left UVJ with hydronephrosis and hydroureter. Patient received 2 doses of Dilaudid for pain control. He is still somewhat uncomfortable and prefers that we call urology to request that the stone be removed. 10/13/20 07:40 10/13/20 08:31 Urinalysis resulted. No UTI. There is hematuria however this is expected in light of patient's ureterolithiasis. Patient's pain now significantly improved. He is now requesting discharge. States he will follow-up with urologist as an outpatient. Patient received a dose of Flomax in our ED. A prescription for th e same was provided to patient. Patient also received a prescription for Toradol. Vital stable. The ureterolithiasis is 5 mm in size. There is a 90% chance that it will pass spontaneously. Patient agrees to follow-up with his urologist within 48 hours for reevaluation. Patient voices no other complaints at this time. We will send patient home with a urine strainer so he can hopefully collect the stone if it passes prior to his appointment with the urologist. (KIMBERLY ROMERO) - Departure Departure Disposition: Home Critical Care Time: No <YANY LEAL - Last Filed: 10/13/20 06:49> - Departure Departure Disposition: Home <KIMBERLY ROMERO - Last Filed: 10/13/20 08:36> - Departure Clinical Impression: Abdominal pain, Ureterolithiasis, Hydronephrosis, Hydroureter, Nephrolithiasis, Diverticulosis, Spondylolysis, Spondylolisthesis Condition: Stable Referrals: TYLER MENDEZ [Primary Care Provider] - MICAH CHAPA [COURTESY STAFF] - Additional Instructions: Discharge/Care Plan YAMILETH SANTIAGO was seen on 10/13/20 in the Emergency Room. The patient was counseled regarding Diagnosis,Lab results, Imaging studies, need for follow up and when to return to the Emergency Room. Prescriptions given: Discharge Note I have spoken with the patient and/or caregivers. I have explained the patient's condition, diagnosis and treatment plan based on the information available to me at this time. I have answered the patient's and/or caregiver's questions and ad dressed any concerns. The patient and/or caregivers have as good understanding of the patient's diagnosis, condition and treatment plan as can be expected at this point. The vital signs have been stable. The patient's condition is stable and appropriate for discharge from the emergency department. The patient will pursue further outpatient evaluation with the primary care physician or other designated or consulting physician as outlined in the discharge instructions. The patient and/or caregivers are agreeable to this plan of care and follow-up instructions have been explained in detail. The patient and/or caregivers have received these instruction. The patient/and or caregivers are aware that any significant change in condition or worsening of symptoms should prompt an immediate return to this or the closest emergency department or call 911. Prescriptions: Tamsulosin HCl 0.4 mg [Flomax 0.4 MG] 0.4 mg PO DAILY 14 Days #14 cap Ketorolac Tromethamine [Toradol] 10 mg PO TID 5 Days #15 tablet
[2020-10-13 06:50] LABS: INR 1.09 (0.8-3.0); PROTIME 12.3 SECONDS (8.83-12.87)
[2020-10-13 06:54] LABS: ALBUMIN 4.1 g/dL (3.5-5.0); ALKALINE PHOSPHATASE 75 U/L (38-126); AMYLASE 72 U/L (30-110); ANION GAP 14.3 MEQ/L (5-15); BLOOD UREA NITROGEN 13 mg/dL (9-20); CHLORIDE 103 mmol/L (98-107); Calcium 8.9 mg/dL (8.4-10.2); Carbon Dioxide 24 mmol/L (22-30); Creatinine 1 1.05 mg/dL (0.66-1.25); EST GLOMERULAR FILTRATION RATE > 60.0 ML/MIN; Glucose 163 mg/dL (74-106); LIPASE 81 U/L (23-300); SGOT/AST 48 U/L (17-59); SGPT/ALT 37 U/L (0-50); SODIUM 138 mmol/L (137-145); Total Protein 6.8 g/dL (6.3-8.2)
[2020-10-13 07:25] VITALS: BP 130/65; PULSE 77; O2SAT 95
[2020-10-13 07:44] LABS: Appearance CLOUDY (CLEAR); Bacteria RARE /HPF (NEGATIVE); Bilirubin NEGATIVE (NEGATIVE); Blood LARGE Ery/ul (0-5); Glucose NEGATIVE (NEGATIVE); Ketones NEGATIVE (NEGATIVE); Leukocyte Esterase NEGATIVE (NEGATIVE); Mucus SLIGHT /HPF (NEGATIVE); Nitrite NEGATIVE (NEGATIVE); Protein,Urine Dip NEGATIVE (Negative); Specific Gravity 1.025 (1.005-1.025); Urobilinogen NEGATIVE mg/dL (0-1)
[2020-10-13 08:06] LABS: RBC >101 /HPF (0-2)
[2020-10-13] MEDS ORDERED: Flomax 0.4 MG PO STA (08:30)
[2020-10-13] MEDS ORDERED: Flomax 0.4 MG ONE (08:35)
--- NOTE | 2020-10-13 08:50 | XRAY ---
Indication: Left lower quadrant pain. Multiple contiguous axial images obtained through the abdomen and pelvis without contrast. Comparison: October 14, 2018. Lung bases again demonstrates scattered fibrosis/scarring without focal infiltrate or effusion. Heart is not enlarged. Noncontrasted stomach and bowel loops nonobstructed again with normal appendix. There remains mild scattered colonic diverticulosis without diverticulitis. Stable mild fatty liver and previous cholecystectomy. No free fluid/air. New 5 mm left UVJ calculus. Proximal left ureter is slightly prominent and there is mild hydronephrosis consistent with partial obstructive uropathy. Additional micro-calculus in each kidney. Remaining liver, pancreas, spleen, adrenal glands, kidneys, ureters, and bladder are unremarkable for noncontrast exam. There remains minimal aortoiliac calcifications without AAA. Osseous structures intact again with mild degenerative spondylosis throughout the spine and bilateral L5 spondylolysis with grade 1-2 spondylolisthesis. Impression: 1. New 5 mm left UVJ calculus producing partial obstruction. Additional bilateral micro-calculus. 2. Again incidental colonic diverticulosis, fatty liver, and L5 spondylolysis with grade 1-2 spondylolisthesis.
== END 2020-10-13 08:58 | disposition home or self-care (01) ==
LOC: ED 05:37
DX: R10.9 Unspecified abdominal pain (principal); N13.2 Hydronephrosis with renal and ureteral calculous obstruction; N13.4 Hydroureter; K57.90 Diverticulosis of intestine, part unspecified, without perforation or abscess without bleeding; M43.10 Spondylolisthesis, site unspecified
CPT/HCPCS: 36415; 74176; 80053; 81001; 82150; 83605; 83690; 85025; 85610; 96374; 96375; 96376; 99284; J1170; A9270-GY